=== PATIENT | female | born 1990 | race Caucasian/White ===

== ENCOUNTER 2023-07-18 18:01 | Emergency (ER) | payer MEDICAID, SELFPAY ==
[2023-07-18 18:21] VITALS: BP 120/87; PULSE 77; RESP 16; TEMP 36.3; O2SAT 99; BMI 50.0
--- NOTE | 2023-07-18 19:33 | ED.NURSE ---
Patient was triaged and then left the waiting room before being seen by MD.
== END 2023-07-18 20:21 | disposition left against medical advice (07) ==
PROVIDERS: Emergency Provider Family Medicine; PCP Family Medicine
DX: Z53.21 Procedure and treatment not carried out due to patient leaving prior to being seen by health care provider (principal)

== ENCOUNTER 2023-07-19 21:41 | Emergency (ER) | payer MEDICAID, SELFPAY ==
[2023-07-19 21:55] VITALS: BP 120/86; PULSE 86; RESP 16; TEMP 36.4; O2SAT 98; BMI 50.4
[2023-07-19] MEDS: OXYCODONE 5 MG TABLET PO (23:34)
[2023-07-19] MEDS: IBUPROFEN 400 MG TABLET 800 MG PO (23:35)
[2023-07-19] MEDS: DOXYCYCLINE HYCLATE 100 MG PO (23:46)
--- NOTE | 2023-07-20 00:22 | ED.GENADULT ---
HPI - General Adult General Chief complaint: Skin/Abscess/Foreign Body Stated complaint: Lump under brest-painful Time Seen by Provider: 07/19/23 23:14 Source: patient Mode of arrival: ambulatory Limitations: no limitations History of Present Illness HPI narrative: 32-year-old female presents the emergency department with a 3 day history of an inflamed, tender spot on the bottom side of her right breast. Reports that she has had a cyst there for quite some time that is typically not problematic. For the last few days, redness and tenderness, no drainage. Seems to be worsening. Came to the ED yesterday but left without being seen due to significant wait times. No fever, no injury or trauma. No nipple drainage. Not lactating. No antibiotic allergies. 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 Has not tried any home treatments. Has not taken any Tylenol or ibuprofen to help with her symptoms. Past medical history benign per her report, no long-term medical problems, no allergies. No prior breast surgeries. ROS is notable for the skin symptoms as above only. Otherwise negative for other breast, skin, musculoskeletal, chest, generalized concerns. Related Data Previous Rx's Medication Instructions Recorded doxycycline hyclate 100 mg capsule 100 mg PO BID 7 days #14 caps 07/20/23 Allergies Allergy/AdvReac Type Severity Reaction Status Date / Time No Known Allergies Allergy Unknown Verified 07/16/23 08:08 [facility] Surgical History Status post delivery ?Z98.891 - History of uterine scar from previous surgery (ICD-10) Social History Smoking Status: Never smoker Do you use any of these nicotine containing products: None How often do you have a drink containing alcohol: never AUDIT-C Alcohol total score: 0 Non-prescribed substance use: denies use Exam Const: Vital Signs, click to edit/add: Vital Signs - 24 hr 07/19/23 21:55 Temperature 97.6 F Pulse Rate [Left P ulse Oximeter] 86 Respiratory Rate 16 Blood Pressure [Ri ght Upper Arm] 120/86 Pulse Oximetry 98 Oxygen Delivery Me thod Room Air Documenting provider has reviewed patient's vital signs: yes Common normals: no apparent distress General appearance: cooperative and comfortable Eye: General eye: normal appearance of both eyes Neck & C-Spine: General: normal visual inspection Chest: Other: Left breast normal in appearance. Right breast with normal-appearing upper breast and nipple. Under side of breast has a 6 x 6 cm area of induration, swelling. Central area fluctuant. Overall very [place], masslike structure that seems more related to the infection than a true mass. I can not appreciate any obvious lymphadenopathy in the axilla, no drainage. No surgical scarring. Resp: Common normals: normal respiratory effort, no use of accessory muscles and clear to auscultation bilaterally Effort & inspection: able to speak in complete sentences Auscultation: clear to auscultation bilaterally Cardio: Common normals: regular rate, regular rhythm, S1 normal heart sound, S2 normal heart sound and no murmurs Rate: regular rate Rhythm: regular rhythm Heart sounds: S1 normal and S2 normal Extremity: Other: Normal movement and range of motion and right arm. Psych: Activity/motor behavior: appropriate eye contact Insight: insight good Judgement: judgment good Skin: Narrative: Other than the redness under the right breast, no other areas of redness, infection, laceration or trauma. Course Course ED Course: Lesion most likely consistent with a superficial skin abscess. Concern for possible deeper infection, though seems unlikely. Recommended incision and drainage. Procedure incision and drainage. Verbal consent obtained. Area is cleansed with Betadine x3. 3 mL of 1% lidocaine with epinephrine were used to infiltrate skin with good anesthesia. 2 minute wait performed to allow anesthesia to kick in, good blanching noted. Fifteen blade was used to in size 3 mm with good purulent drainage to the fluctuant central area. This yielded about 5 mL of purulent fluid. Gentle exploration with hemostat showed no signs of further abscess, dental massage did not yield any further fluid. Area was left open, covered in antibiotic ointment and gauze pad. Hemostatic at the end of the procedure. Covered with Band-Aids and instructed on wound care. Patient was started on doxycycline 100 mg twice daily due to her history of MRSA. First dose given in ED. Additional prescription sent to pharmacy. I recommended that she follow up with General surgery as this could require further surgical intervention. She also does not have a primary care provider. May require additional imaging which I cannot get tonight. Patient was counseled regarding this. There is a chance that the infection could spread deeper. Antibiotic should lessen this risk but may not completely eliminate. Instructed on wound care with daily dressing changes. She verbalizes understanding and agreement. Alarm symptoms reviewed that would warrant further ED presentation. She verbalized understanding and agreement. Vital Signs Vital signs: Initial Vital Signs Temperature 97.6 F 07/19/23 21:55 Temperature Source Temporal Artery Scan 07/19/23 21:55 Pulse Rate 86 07/19/23 21:55 Respiratory Rate 16 07/19/23 21:55 Blood Pressure 120/86 07/19/23 21:55 Blood Pressure Mean 97 07/19/23 21:55 Blood Pressure Position Sitting 07/19/23 21:55 Pulse Oximetry 98 07/19/23 21:55 Oxygen Delivery Method Room Air 07/19/23 21:55 Vital Signs Temperature 97.6 F 07/19/23 21:55 Pulse Rate 86 07/19/23 21:55 Respiratory Rate 16 07/19/23 21:55 Blood Pressure 120/86 07/19/23 21:55 Pulse Oximetry 98 07/19/23 21:55 Oxygen Delivery Method Room Air 07/19/23 21:55 Temperature 97.6 F 07/19/23 21:55 Pulse Rate 86 07/19/23 21:55 Respiratory Rate 16 07/19/23 21:55 Blood Pressure 120/86 07/19/23 21:55 Pulse Oximetry 98 07/19/23 21:55 Oxygen Delivery Method Room Air 07/19/23 21:55 Discharge Plan Discharge Clinical Impression: Abscess of breast Patient Disposition: Home, Self-Care Condition: Improved Instructions: Abscess (ED) Additional Instructions: as we discussed, the abscess was drained. You will need to be on antibiotics for the next 7 days. Would like for you to follow-up with our general surgeon. There is a chance that drainage and antibiotics will not be enough to heal this then you will need more testing. They may request an ultrasound or other imaging at that I cannot get in the middle of the night tonight. They should call you tomorrow to set up an appointment later in the week. In the meantime, wash the wound once daily cover with antibiotic ointment, a gauze pad and Band-Aids. If you do not get much drainage, that is okay and you do not need to use the gauze pad. Things should close up within just a few days. Until things are closed, please keep covered. If you notice a significant increase in redness, high fever, significant weakness or other signs of severe illness, come back to the emergency room in the meantime. This antibiotic does tend to create a little bit of upset stomach but not terrible for most people. Activity Level: No Restrictions Discharge Diet: Regular Prescriptions: New doxycycline hyclate 100 mg capsule 100 mg PO BID 7 Days Qty: 14 0RF Follow Up/Referrals: Cortez Fierro MD [Primary Care Provider] - Radha Zavaleta MD [Staff Physician] - 2 Days (First available general surgery for breast abscess) Stand Alone Forms: [employer] Info Instructions
== END 2023-07-20 00:28 | disposition home or self-care (01) ==
PROVIDERS: Emergency Provider Family Medicine; PCP Family Medicine
DX: N61.1 Abscess of the breast and nipple (principal)
CPT/HCPCS: 10060; 87070; 99283; A9270

== ENCOUNTER 2023-11-23 16:21 | Outpatient (CLI) | payer MEDICAID, SELFPAY | END 2023-11-23 16:22 | disposition home or self-care (01) | PROVIDERS: PCP Internal Medicine; Visit Provider Internal Medicine | DX: E66.9 Obesity, unspecified (principal); Z13.29 Encounter for screening for other suspected endocrine disorder | CPT/HCPCS: 80053; 84443 ==